=== PATIENT | male | born 1935 | race Asian ===

== ENCOUNTER 2021-03-23 00:39 | Outpatient (CLI) | payer MEDICARE | END 2021-03-23 00:40 | disposition EMS.NT | LOC: EMS 00:39 | DX: Z03.89 Encounter for observation for other suspected diseases and conditions ruled out (principal) ==

== ENCOUNTER 2021-03-30 16:39 | Outpatient (CLI) | payer MEDICARE | END 2021-03-30 16:40 | disposition short-term general hospital (02) | LOC: EMS 16:39 | DX: R53.1 Weakness (principal); R41.82 Altered mental status, unspecified | CPT/HCPCS: A0425; A0429 ==